=== PATIENT | female | born 1960 ===

== ENCOUNTER → 2017-10-30 | Outpatient (CLI) | payer OTHER ==
--- NOTE | 2017-10-30 11:43 | Diagnostic Imaging Report ---
PROCEDURE: US abdomen complete. TECHNIQUE: Multiple real-time grayscale images were obtained over the abdomen in various projections. INDICATION: Epigastric pain. The pancreas is obscured by bowel gas. The liver is enlarged at 19 cm. There is diffuse increased echogenicity consistent with hepatic steatosis. No discrete liver mass is identified. The portal vein is patent and demonstrates normal direction of flow. The gallbladder is without stones or sludge. No wall thickening or pericholecystic fluid is seen. No biliary ductal dilatation is identified. Spleen is normal in size. Proximal and mid aorta are obscured by bowel gas. Distal aorta is non-aneurysmal. IVC is unremarkable. The right and left kidneys are unremarkable. There is no ascites. IMPRESSION: 1. Hepatomegaly and hepatic steatosis. 2. No evidence of cholelithiasis or acute cholecystitis. Dictated by: Dictated on workstation # [id number]
== END ==
LOC: RAD 10:36
PROVIDERS: ATTEND Nurse Practitioner Family
DX: K76.0 Fatty (change of) liver, not elsewhere classified (principal)
CPT/HCPCS: 76700

== ENCOUNTER → 2017-11-02 | Outpatient (CLI) | payer OTHER ==
--- NOTE | 2017-11-02 18:47 | Diagnostic Imaging Report ---
INDICATION: Right breast pain and right nipple discharge. COMPARISON: No prior studies are available for comparison. The current study was also evaluated with a Computer Aided Detection (CAD) system. FINDINGS: Both breasts are primarily involutional. There are two circumscribed nodules in the upper-outer aspect of the right breast. The smaller nodule is at mid depth, and the larger nodule is at posterior depth. These most likely represent intramammary lymph nodes. No spiculated mass or malignant appearing microcalcifications are seen. Axillae are unremarkable. IMPRESSION: No suspicious mammographic abnormality is seen. There are circumscribed nodules in the upper-outer right breast. Further evaluation of this area with ultrasound is recommended. In addition, ultrasound evaluation of the retroareolar right breast at the area of the patient's pain is recommended and will be performed today. ACR BI-RADS Category 0: Incomplete. (Needs additional imaging evaluation). Result letter will be mailed to the patient. Note: At least 10% of breast cancer is not imaged by mammography. Dictated by: Dictated on workstation # [id number]
--- NOTE | 2017-11-02 18:49 | Diagnostic Imaging Report ---
INDICATION: Right breast pain particularly in the periareolar region. Patient also presents with nipple discharge. Correlation is made with diagnostic mammogram earlier the same day. Sonographic interrogation of the periareolar region as well as the upper-outer right breast was performed. FINDINGS: No sonographic abnormality in the retroareolar and periareolar region is identified. Evaluation of the upper-outer right breast was performed. There are two lymph nodes present corresponding with the circumscribed densities noted on mammogram. There is a 7 mm lymph node at the 10:30 location approximately 10 cm from the nipple. A smaller intraparenchymal lymph node is identified at the 10 o'clock location 6 cm from the nipple measuring approximately 4 mm. These correspond in size and location to the mammographic densities. No other abnormalities are seen. IMPRESSION: 1. Intraparenchymal lymph nodes in upper-outer right breast corresponding to the mammographic densities. 2. No abnormality is identified at the area of the patient's pain in the periareolar region. Dictated by: Dictated on workstation # [id number]
== END ==
LOC: RAD 12:05 → EDUNIT# 12:45
PROVIDERS: ATTEND Nurse Practitioner Family
DX: N64.52 Nipple discharge (principal); N63.11 Unspecified lump in the right breast, upper outer quadrant
CPT/HCPCS: 77066